=== PATIENT | male | born 1980 | race Caucasian/White ===

== ENCOUNTER 2016-05-24 18:11 | Emergency (ER) | payer OTHER ==
[~2016-05-24 18:11] MED LIST: BACTRIM DS TAB1 EACH PO; CLEOCIN150 MG PO; HYDROCODON-ACE1 EAC2 PO; IBUPROFEN800 MG PO; NICODERM 14MG PA1 EA TD; OXYCODON-ACETA1 EAC1 PO; TYLENOL325 M1 PO
== END 2016-05-24 19:58 | disposition home or self-care (01) ==
LOC: ER 18:11
DX: L03.115 Cellulitis of right lower limb (principal); L02.413 Cutaneous abscess of right upper limb; Z86.14 Personal history of Methicillin resistant Staphylococcus aureus infection; F17.210 Nicotine dependence, cigarettes, uncomplicated
CPT/HCPCS: 99282

== ENCOUNTER 2016-05-26 09:00 | Emergency (ER) | payer OTHER ==
[2016-05-26 09:48] LABS: BASO % 0.4 % (0.2-1.2); EOS # 0.1 10_X3_uL (0.0-0.5); EOS % 1.3 % (0.8-7.0); GRAN # 7.2 10_X3_uL (1.8-5.4); GRAN % 68.9 % (34.0-67.9); HEMATOCRIT 45.1 % (40-51); HEMOGLOBIN 15.1 g/dL (13.7-17.5); LYMPH # 2.4 10_X3_uL (1.3-3.6); LYMPH % 22.6 % (21.8-53.1); MEAN CORPUSCULAR HEMOGLOBIN 30.2 pg (27.0-33.0); MEAN CORPUSCULAR HGB CONC 33.5 g/dL (32.0-36.0); MEAN CORPUSCULAR VOLUME 90.2 fL (79-92); MEAN PLATELET VOLUME 9.7 fl (7.5-11.5); MONO # 0.7 10_X3_uL (0.3-0.8); MONO % 6.8 % (5.3-12.2); PLATELET COUNT 358 x10_3/uL (163-337); RED CELL DISTRIBUTION WIDTH 14.2 % (11.6-14.4); WHITE BLOOD COUNT 10.4 x10_3/uL (4.2-9.1)
== END 2016-05-26 10:35 | disposition home or self-care (01) ==
LOC: ER 09:00
PROVIDERS: Family Medicine
DX: L02.413 Cutaneous abscess of right upper limb (principal); L03.113 Cellulitis of right upper limb; F17.210 Nicotine dependence, cigarettes, uncomplicated
CPT/HCPCS: 36415; 85025; 87070; 99070; 99283

== ENCOUNTER 2016-06-30 17:44 | Emergency (ER) | payer OTHER | END 2016-06-30 19:20 | disposition home or self-care (01) | LOC: ER 17:44 | DX: M54.5 Low back pain (principal); F17.210 Nicotine dependence, cigarettes, uncomplicated; Z79.899 Other long term (current) drug therapy | CPT/HCPCS: 72100; 99283-25 ==

== ENCOUNTER 2016-08-29 02:47 | Emergency (ER) | payer OTHER ==
[2016-08-29 03:32] LABS: BASO % 0.5 % (0.2-1.2); EOS # 0.2 10_X3_uL (0.0-0.5); EOS % 3.9 % (0.8-7.0); GRAN # 2.7 10_X3_uL (1.8-5.4); GRAN % 48.1 % (34.0-67.9); HEMATOCRIT 41.9 % (40-51); HEMOGLOBIN 14.3 g/dL (13.7-17.5); LYMPH # 2.2 10_X3_uL (1.3-3.6); LYMPH % 38.4 % (21.8-53.1); MEAN CORPUSCULAR HEMOGLOBIN 29.5 pg (27.0-33.0); MEAN CORPUSCULAR HGB CONC 34.1 g/dL (32.0-36.0); MEAN CORPUSCULAR VOLUME 86.4 fL (79-92); MEAN PLATELET VOLUME 10.8 fl (7.5-11.5); MONO # 0.5 10_X3_uL (0.3-0.8); MONO % 9.1 % (5.3-12.2); RED BLOOD COUNT 4.85 x10_6/uL (4.6-6.1); RED CELL DISTRIBUTION WIDTH 14.1 % (11.6-14.4); WHITE BLOOD COUNT 5.6 x10_3/uL (4.2-9.1)
[2016-08-29 03:34] LABS: PLATELET COUNT 47 x10_3/uL (163-337)
[2016-08-29 03:48] LABS: ALBUMIN 4.1 gm/dL (3.4-5.0); ALKALINE PHOSPHATASE 74 U/L (50-136); ALT/SGPT 60 U/L (7.53-40.17); AST/SGOT 41 U/L (6.66-35.34); BILIRUBIN,TOTAL 0.33 mg/dL (0.0-1.0); BLOOD UREA NITROGEN 12 mg/dL (7-18); CALCIUM 9.3 mg/dL (8.7-10.7); CARBON DIOXIDE 25 mmol/L (21-32); CREATININE 0.9 mg/dL (0.6-1.3); GLUCOSE,RANDOM 160 mg/dL (70-99); POTASSIUM 4.2 mmol/L (3.5-5.1); SODIUM 136 mmol/L (136-145); TOTAL PROTEIN 8.1 gm/dL (6.4-8.2)
== END 2016-08-29 04:45 | disposition left against medical advice (07) ==
LOC: ER 02:47
PROVIDERS: General Practice
DX: L02.414 Cutaneous abscess of left upper limb (principal); L03.114 Cellulitis of left upper limb; R74.8 Abnormal levels of other serum enzymes; Z86.19 Personal history of other infectious and parasitic diseases; Z79.899 Other long term (current) drug therapy
CPT/HCPCS: 36415; 73110; 80053; 85025; 87070; 99070; 99283-25